=== PATIENT | male | born 1975 | race Caucasian/White ===

== ENCOUNTER 2017-08-24 13:42 | Emergency (ER) | payer OTHER ==
[~2017-08-24] VITALS: Ht 162.6 cm; Wt 70.0 kg
[2017-08-24 13:49] VITALS: BP 153/72
[2017-08-24] MEDS ORDERED: WELLBUTRIN75 MG PO (15:52)
[2017-08-24] MEDS ORDERED: ATARAX,VISTARIL50 MG PO (15:52)
[2017-08-24] MEDS ORDERED: PLAVIX75 MG PO (15:52)
== END 2017-08-24 16:07 | disposition home or self-care (01) ==
LOC: EME 13:42
DX: Z76.0 Encounter for issue of repeat prescription (principal); F41.9 Anxiety disorder, unspecified; F32.9 Major depressive disorder, single episode, unspecified; E11.9 Type 2 diabetes mellitus without complications; I25.2 Old myocardial infarction; Z95.5 Presence of coronary angioplasty implant and graft; Z88.0 Allergy status to penicillin; Z79.02 Long term (current) use of antithrombotics/antiplatelets
CPT/HCPCS: 99281; 99283

== ENCOUNTER 2017-09-02 20:04 | Emergency (ER) | payer OTHER ==
[~2017-09-02] VITALS: Ht 162.6 cm; Wt 66.7 kg
[~2017-09-02 20:04] MED LIST: ATARAX,VISTARIL50 MG PO; PLAVIX75 MG PO; WELLBUTRIN75 MG PO
[2017-09-02 21:24] LABS: POINT-OF-CARE METER ID UU13113747
[2017-09-02 21:29] LABS: ADD MIUA? YES; BILIRUBIN NEGATIVE; BLOOD NEGATIVE; COLOR YELLOW ((YELLOW)); GLUCOSE (STRIP) NEGATIVE; KETONES NEGATIVE; LEUKOCYTES NEGATIVE; NITRITE NEGATIVE; PROTEIN (STRIP) 30; SPECIFIC GRAVITY 1.012 (1.000-1.030); UROBILINOGEN 0.2 MG/DL (0.2-1.0)
[2017-09-02 21:33] LABS: BACTERIA NONE SEEN /HPF; EPITHELIAL CELLS NONE SEEN /HPF; MUCUS TRACE /LPF; RED BLOOD CELLS 0-5 /HPF (0-5); WHITE BLOOD CELLS 0-5 /HPF (0-5)
[2017-09-02 21:37] LABS: EOSINOPHIL COUNT 0.2 K/uL (0-0.3); HEMATOCRIT 37.7 % (38.0-50.0); IMMATURE GRANULOCYTE (%) 0.6 % (0.0-0.7); IMMATURE GRANULOCYTE COUNT 0.1 K/uL; INSTRUMENT ABS NEUTROPHIL CT 13.4 K/uL; LYMPHOCYTE COUNT 1.8 K/uL (1.0-2.8); MCH 28.5 PG (29.0-34.0); MCHC 34.2 G/DL (30.0-36.0); MCV 83.2 FL (86-99); MEAN PLAT.VOLUME 9.8 uM^3 (9.0-12.4); MONOCYTE (%) 5.8 % (3-12); NEUTROPHIL (%) 81.6 % (45-76); NEUTROPHIL COUNT 13.4 K/uL (1.8-6.4); PLATELET COUNT 208 K/uL (156-360); RBC DIS.WIDTH-CV 12.7 % (11.8-14.6); RBC DIS.WIDTH-SD 38.4 % (39-53); RED BLOOD COUNT 4.53 M/uL (4.00-5.50); WHITE BLOOD COUNT 16.4 K/uL (4.1-10.2)
[2017-09-02 21:45] LABS: CHLORIDE 103 mEq/L (99-109); POTASSIUM 3.9 mEq/L (3.7-5.4); SODIUM 138 mEq/L (136-147)
[2017-09-02 21:46] LABS: GLUCOSE 210 mg/dL (70-99)
[2017-09-02 21:48] LABS: ANION GAP 10 MEQ/L (2-14)
[2017-09-02 21:50] LABS: GFR ESTIMATE (CALCULATED) > 59 mL/min/
[2017-09-02 21:51] LABS: UREA NITROGEN (BUN) 11 mg/dL (9-23)
[2017-09-02 22:42] VITALS: BP 147/91
== END 2017-09-02 22:43 | disposition home or self-care (01) ==
LOC: EME 20:04
PROVIDERS: Emergency Medicine
DX: E11.649 Type 2 diabetes mellitus with hypoglycemia without coma (principal); Z79.4 Long term (current) use of insulin; Z79.02 Long term (current) use of antithrombotics/antiplatelets; F17.200 Nicotine dependence, unspecified, uncomplicated
CPT/HCPCS: 80048; 81003; 82948; 85025; 99281; 99283

== ENCOUNTER 2017-11-13 20:18 | Inpatient (IN) | payer OTHER ==
[~2017-11-13] VITALS: Ht 162.6 cm; Wt 64.5 kg
[2017-11-13 20:46] LABS: BASOPHIL (%) 0.3 % (0-1); BASOPHIL COUNT 0.1 K/uL (0-0.1); EOSINOPHIL (%) 0.8 % (0-5); EOSINOPHIL COUNT 0.1 K/uL (0-0.3); HEMATOCRIT 39.8 % (38.0-50.0); HEMOGLOBIN 13.5 G/DL (12.5-16.6); IMMATURE GRANULOCYTE (%) 0.4 % (0.0-0.7); LYMPHOCYTE (%) 10.9 % (15-42); LYMPHOCYTE COUNT 1.7 K/uL (1.0-2.8); MCH 28.1 PG (29.0-34.0); MCHC 33.9 G/DL (30.0-36.0); MCV 82.7 FL (86-99); MONOCYTE (%) 5.6 % (3-12); MONOCYTE COUNT 0.9 K/uL (0-0.8); PLATELET COUNT 264 K/uL (156-360); RBC DIS.WIDTH-SD 36.2 % (39-53); RED BLOOD COUNT 4.81 M/uL (4.00-5.50); WHITE BLOOD COUNT 15.8 K/uL (4.1-10.2)
[2017-11-13 21:01] LABS: ALBUMIN 4.3 g/dL (3.2-4.8); CHLORIDE 104 mEq/L (99-109); POTASSIUM 4.4 mEq/L (3.7-5.4); SODIUM 139 mEq/L (136-147)
[2017-11-13 21:04] LABS: GLUCOSE 55 mg/dL (70-99); TOTAL PROTEIN 7.6 g/dL (6.4-8.3)
[2017-11-13 21:05] LABS: TOTAL BILIRUBIN 0.2 mg/dL (0.0-1.0)
[2017-11-13 21:06] LABS: SERUM ETHYL ALCOHOL < 10 mg/dL
[2017-11-13 21:07] LABS: ALKALINE PHOSPHATASE 76 IU/L (3-129); GFR ESTIMATE (CALCULATED) > 59 mL/min/ (58.99-99999)
[2017-11-13 21:08] LABS: UREA NITROGEN (BUN) 11 mg/dL (9-23)
[2017-11-13 21:09] LABS: AST (GOT) 43 IU/L (2-34)
[2017-11-13 21:10] LABS: ALT (GPT) 32 IU/L (3-49)
[2017-11-14 00:14] LABS: APPEARANCE CLEAR ((CLEAR)); BILIRUBIN NEGATIVE; BLOOD NEGATIVE; COLOR YELLOW ((YELLOW)); GLUCOSE (STRIP) 50; KETONES NEGATIVE; LEUKOCYTES NEGATIVE; NITRITE NEGATIVE; PROTEIN (STRIP) 30; SPECIFIC GRAVITY 1.011 (1.000-1.030); UROBILINOGEN 0.2 MG/DL (0.2-1.0)
[2017-11-14 00:21] LABS: AMPHETAMINE PRESUMPTIVE POSITIVE (500 ng/mL); BARBITURATES NEGATIVE (200 ng/mL); BENZODIAZEPINES NEGATIVE (150 ng/mL); BUPRENORPHINE PRESUMPTIVE POSITIVE (10 ng/mL); COCAINE NEGATIVE (150 ng/mL); METHADONE NEGATIVE (200 ng/mL); METHAMPHETAMINE NEGATIVE (500 ng/mL); OPIATES (MORPHINE) NEGATIVE (100 ng/mL); OXYCODONE NEGATIVE (100 ng/mL); PHENCYCLIDINE NEGATIVE (25 ng/mL); PROPOXYPHENE NEGATIVE (300 ng/mL); THC CANNABINOIDS NEGATIVE (50 ng/mL); TRICYCLIC ANTIDEPRESSANTS NEGATIVE (300 ng/mL)
[2017-11-14 01:29] LABS: CARBON DIOXIDE (BICARBONATE) 29.8 MEQ/L (20-31)
[2017-11-14] MEDS ORDERED: VYVANSE30 MG PO (01:35)
[2017-11-14] MEDS ORDERED: BUPROPION HCL75 MG PO (01:35)
[2017-11-14] MEDS ORDERED: BUPRENORPHIN-N1 EACH SL (01:36)
[2017-11-14] MEDS ORDERED: NOVOLIN,HU100 UNITS/ SC ×2 (01:37→10:17)
[2017-11-14] MEDS ORDERED: KLONOPIN1 MG PO (01:39)
[2017-11-14 01:44] LABS: CHLORIDE 102 mEq/L (99-109); POTASSIUM 4.3 mEq/L (3.7-5.4); SODIUM 138 mEq/L (136-147)
[2017-11-14 01:46] LABS: GLUCOSE 69 mg/dL (70-99)
[2017-11-14 01:50] LABS: CREATININE 0.9 mg/dL (0.6-1.3); GFR ESTIMATE (CALCULATED) > 59 mL/min/ (58.99-99999); UREA NITROGEN (BUN) 11 mg/dL (9-23)
[2017-11-14 04:24] VITALS: BP 140/80
[2017-11-14 06:50] LABS: MCH 27.8 PG (29.0-34.0); MCHC 33.3 G/DL (30.0-36.0); MCV 83.3 FL (86-99); PLATELET COUNT 238 K/uL (156-360); RBC DIS.WIDTH-CV 12.3 % (11.8-14.6); RBC DIS.WIDTH-SD 37.2 % (39-53); RED BLOOD COUNT 4.32 M/uL (4.00-5.50); WHITE BLOOD COUNT 11.1 K/uL (4.1-10.2)
[2017-11-14 07:18] LABS: CHLORIDE 101 MEQ/L (99-109); CREATININE 0.9 MG/DL (0.6-1.3); GFR ESTIMATE (CALCULATED) > 59 mL/min/ (58.99-99999); POTASSIUM 4.2 MEQ/L (3.7-5.4); SODIUM 138 MEQ/L (136-147); UREA NITROGEN (BUN) 11 mg/dL (9-23)
[2017-11-14 07:25] LABS: GLUCOSE 169 mg/dL (70-99)
[2017-11-14 07:59] VITALS: BP 176/77
[2017-11-14] MEDS ORDERED: HUMALOG100 UNIT/1 SC (10:19)
[2017-11-14 12:06] VITALS: BP 160/77
== END 2017-11-14 16:05 | DRG 639 ==
LOC: EME → EDBD 20:18 → EME 20:18 → EDOF 11-14 02:37 → ENRESERV 11-14 02:44 → 5EAST 11-14 04:09
PROVIDERS: Emergency Medicine; Family Medicine Sports Medicine
DX: E10.649 Type 1 diabetes mellitus with hypoglycemia without coma (principal); E10.40 Type 1 diabetes mellitus with diabetic neuropathy, unspecified; I25.10 Atherosclerotic heart disease of native coronary artery without angina pectoris; K21.9 Gastro-esophageal reflux disease without esophagitis; F32.9 Major depressive disorder, single episode, unspecified; M10.9 Gout, unspecified; G89.29 Other chronic pain; M54.5 Low back pain; F41.1 Generalized anxiety disorder; F90.9 Attention-deficit hyperactivity disorder, unspecified type; B18.2 Chronic viral hepatitis C; F10.10 Alcohol abuse, uncomplicated; F17.200 Nicotine dependence, unspecified, uncomplicated; I25.2 Old myocardial infarction; Z79.4 Long term (current) use of insulin; Z88.0 Allergy status to penicillin; Z91.19 Patient's noncompliance with other medical treatment and regimen; Z59.0 Homelessness; Z79.02 Long term (current) use of antithrombotics/antiplatelets; Z91.14 Patient's other noncompliance with medication regimen; Z91.11 Patient's noncompliance with dietary regimen
CPT/HCPCS: 71045; 80048 91; 80053; 81003; 82803; 82948; 83605; 84999; 85025; 85027; 87040; 99281; 99285; G0480; J1650; J2060; J2405